=== PATIENT | female | born 2000 | race Caucasian/White ===

== ENCOUNTER 2023-10-23 15:58 | Emergency (ER) | payer SELFPAY ==
[2023-10-23] MEDS ORDERED: Sodium Chloride 0.9% 1,000 ML IV ONE (16:01)
[2023-10-23 16:51] LABS: BASOPHILS ABSOLUTE AUTO 0.02 K/uL (0.00-0.20); BASOPHILS PERCENT AUTO 0.3 % (0.0-1.0); EOSINOPHILS ABSOLUTE AUTO 0.06 K/uL (0.00-0.45); EOSINOPHILS PERCENT AUTO 0.8 % (0.0-6.0); HEMATOCRIT 32.9 % (37.0-47.0); IMMATURE GRAN ABSOLUTE AUTO 0.01 K/uL (0.00-0.05); IMMATURE GRAN PERCENT AUTO 0.1 % (0.0-0.4); LYMPHOCYTES ABSOLUTE AUTO 1.99 K/uL (1.00-4.80); MEAN CORPUSCULAR HEMOGLOBIN 33.1 pg (28.0-32.0); MEAN CORPUSCULAR HGB CONC 36.5 g/dL (32.0-36.0); MEAN CORPUSCULAR VOLUME 90.9 fL (83.0-99.0); MEAN PLATELET VOLUME 10.5 fL (9.4-12.3); MONOCYTES ABSOLUTE AUTO 0.62 K/uL (0.00-0.80); MONOCYTES PERCENT AUTO 7.8 % (0.0-8.0); NEUTROPHILS ABSOLUTE AUTO 5.26 K/uL (1.80-7.70); PLATELET COUNT,PLT 231 K/uL (150-400); RED BLOOD CELL COUNT 3.62 M/uL (4.10-5.30); WHITE BLOOD CELL COUNT,WBC 7.96 K/uL (3.9-11.3)
[2023-10-23 17:35] LABS: ALBUMIN 3.7 g/dL (3.4-5.0); BILIRUBIN TOTAL 0.2 mg/dL (0.2-1.0); CALCIUM 9.1 mg/dL (8.5-10.1); CARBON DIOXIDE,CO2 24.6 mmol/L (21.0-32.0); CREATININE 0.6 mg/dL (0.6-1.0); EST CRCL DRUG DOSING (CG) 143.11 mL/min; POTASSIUM,K 3.7 mmol/L (3.5-5.1); PROTEIN TOTAL,TP 7.3 g/dL (6.4-8.2)
[2023-10-23 18:05] LABS: BILIRUBIN,URINE NEGATIVE (NEGATIVE); COLOR,URINE YELLOW; GLUCOSE,URINE NEGATIVE (NEGATIVE); KETONES,URINE NEGATIVE (NEGATIVE); LEUKOCYTE ESTERASE,URINE NEGATIVE (NEGATIVE); NITRITE,URINE NEGATIVE (NEGATIVE); OCCULT BLOOD,URINE NEGATIVE (NEGATIVE); PROTEIN,URINE NEGATIVE (NEGATIVE); UROBILINOGEN,URINE 0.2 EU/dL (<2.0)
[2023-10-23 18:06] LABS: APPEARANCE,URINE HAZY
== END 2023-10-23 18:41 | disposition home or self-care (01) ==
LOC: MW.ED 15:58
DX: O26.891 Other specified pregnancy related conditions, first trimester (principal); R10.11 Right upper quadrant pain; Z3A.12 12 weeks gestation of pregnancy
CPT/HCPCS: 36415; 76817; 76817-26; 80053; 81003; 84702; 85025; 86900; 86901; 99282; 99284

== ENCOUNTER 2024-05-20 10:09 | Inpatient (IN) | payer BC ==
[~2024-05-20 10:09] MED LIST: Albuterol 0.083% 2.5 MG/3 ML Neb Soln NEB PRN; HYDROmorphone 1 MG/ML Syringe IVPUSH PRN; Metoclopramide 10 MG/2 ML SDV IVPUSH PRN; Morphine 2 MG/ML SYRINGE IVPUSH PRN; Nalbuphine 10 MG/1 ML Vial IVPUSH PRN; Naloxone 0.4 MG/ML SDV IVPUSH PRN; Ondansetron 4 MG/2 ML SDV IVPUSH PRN; diphenhydrAMINE 50 MG/ML SDV IVPUSH PRN; droPERidol 5 MG/2 ML SDV IVPUSH PRN; ePHEDrine 50 MG/ML SDV IVPUSH PRN; fentaNYL 100 MCG/2 ML SDV IVPUSH PRN; fentaNYL 50 MCG/ML SDV IVPUSH PRN
[2024-05-20] MEDS ORDERED: dexmedeTOMIDine HCl 200 MCG/2 ML SDV ONE (10:16)
[2024-05-20] MEDS ORDERED: Morphine PF 10 MG/10 ML SDV ONE (10:16)
[2024-05-20] MEDS ORDERED: Oxytocin 10 Units/1 ML SDV ONE (10:37)
[2024-05-20] MEDS ORDERED: ceFAZolin 2 GM Vial ONE (10:43)
[2024-05-20] MEDS ORDERED: Phenylephrine HCl In 0.9% NaCl 1 MG/10 ML Syringe ONE (10:48)
[2024-05-20] MEDS ORDERED: Ropivacaine 0.5% 5 MG/ML 30 ML SDV ONE (10:57)
[2024-05-20] MEDS ORDERED: Sodium Chloride 0.9% 2.5 ML Syringe FLUSH PRN (11:26)
[2024-05-20] MEDS ORDERED: Citric Acid/Sodium Citrate Solution 30 ML Cup PO ONE (11:26)
[2024-05-20] MEDS ORDERED: Sodium Chloride 0.9% 20 ML SDV IV PRN (11:26)
[2024-05-20] MEDS ORDERED: Sodium Chloride 0.9% 10 ML Syringe FLUSH PRN (11:26)
[2024-05-20] MEDS ORDERED: Lactated Ringers 1,000 ML IV SCH ×2 (11:30→12:00)
[2024-05-20] MEDS ORDERED: Oxytocin/0.9 % Sodium Chloride 30 UNIT/500 ML BAG IV SCH (11:30)
[2024-05-20 11:45] LABS: HEMATOCRIT 34.2 % (37.0-47.0); HEMOGLOBIN 11.6 g/dL (12.0-16.0); MEAN CORPUSCULAR HEMOGLOBIN 32.8 pg (28.0-32.0); MEAN CORPUSCULAR HGB CONC 33.9 g/dL (32.0-36.0); MEAN CORPUSCULAR VOLUME 96.6 fL (83.0-99.0); MEAN PLATELET VOLUME 11.9 fL (9.4-12.3); PLATELET COUNT,PLT 199 K/uL (150-400); RED BLOOD CELL COUNT 3.54 M/uL (4.10-5.30); WHITE BLOOD CELL COUNT,WBC 6.68 K/uL (3.9-11.3)
[2024-05-20] MEDS ORDERED: Acetaminophen 500 MG Tab PO PRN (11:58)
[2024-05-20] MEDS ORDERED: oxyCODONE 5 MG Tab PO PRN (11:58)
[2024-05-20] MEDS ORDERED: Misoprostol 200 MCG Tab RECTAL PRN (11:58)
[2024-05-20] MEDS ORDERED: Methylergonovine 0.2 MG/1 ML Amp IM PRN (11:58)
[2024-05-20] MEDS ORDERED: Lanolin 100% Cream 7 GM Tube TOP PRN (11:58)
[2024-05-20] MEDS ORDERED: Bisacodyl 10 MG Supp RECTAL PRN (11:58)
[2024-05-20] MEDS ORDERED: Ondansetron 4 MG/2 ML SDV IVPUSH PRN (11:58)
[2024-05-20] MEDS ORDERED: Oxytocin 10 Units/1 ML SDV IM PRN (11:58)
[2024-05-20] MEDS ORDERED: diphenhydrAMINE 50 MG/ML SDV IVPUSH PRN (11:58)
[2024-05-20] MEDS: Ketorolac 30 MG/ML SDV IVPUSH SCH (12:26)
[2024-05-20 12:27] LABS: PH,UMBILICAL ARTERIAL 7.202 (7.18-7.38)
[2024-05-20] MEDS: Acetaminophen 1,000 MG in Premix Bag 1 BAG IV SCH (12:33)
[2024-05-20] MEDS: Docusate Sodium 100 MG Cap PO SCH (21:24)
[2024-05-21 05:38] LABS: HEMATOCRIT 28.6 % (37.0-47.0); HEMOGLOBIN 10.1 g/dL (12.0-16.0)
[2024-05-21] MEDS: Acetaminophen/oxyCODONE 325-5 MG Tab PO PRN (15:14)
[2024-05-21] MEDS: Ibuprofen 800 MG Tab PO PRN (20:09)
== END 2024-05-22 13:41 | disposition home or self-care (01) | DRG 540 ==
LOC: MW.OB 10:09 → OBSVTOIN 10:10 → EDSTATUS 11:30 → MW.OB 15:06 → EDSTATUS 05-26 08:00
PROVIDERS: ADMIT Obstetrics & Gynecology; ATTEND Obstetrics & Gynecology
PROC: 10D00Z1 Extraction of Products of Conception, Low, Open Approach (ICD-10-PCS; principal; 2024-05-20 11:30)
DX: O34.211 Maternal care for low transverse scar from previous cesarean delivery (principal); O26.643 Intrahepatic cholestasis of pregnancy, third trimester; E78.79 Other disorders of bile acid and cholesterol metabolism; K76.89 Other specified diseases of liver; Z3A.36 36 weeks gestation of pregnancy; Z37.0 Single live birth
CPT/HCPCS: 01961; 36415; 59025; 64488; 82803; 85014; 85018; 85027; 86592; 86850; 86900; 86901; A9270-GY; J0131; J0690; J1885; J2274; J2371; J2590; J2795; J3490